=== PATIENT | female | born 1960 | race Caucasian/White ===

== ENCOUNTER 2019-01-07 08:23 | Outpatient (CLI) | payer OTHER, SELFPAY ==
[2019-01-07 10:14] LABS: Calculated LDL 123 mg/dL; Cholesterol 206 mg/dL (50-200); Glucose 87 mg/dL (70-100); HDL Cholesterol 71 mg/dL (40-60); Triglyceride 60 mg/dL (30-150)
== END 2019-01-07 08:43 ==
PROVIDERS: PCP Nurse Practitioner Family; Visit Provider Nurse Practitioner Family
DX: Z13.1 Encounter for screening for diabetes mellitus (principal); Z00.00 Encounter for general adult medical examination without abnormal findings; Z13.220 Encounter for screening for lipoid disorders
CPT/HCPCS: 36415; 80061; 82947; 83721

== ENCOUNTER 2019-09-09 13:52 | Outpatient (CLI) | payer OTHER, SELFPAY ==
[2019-09-12 16:32] LABS: COVID-19 RT-PCR Result Not Detected (NotDetected)
== END 2019-09-09 14:12 ==
PROVIDERS: PCP Nurse Practitioner Family; Visit Provider Family Medicine
DX: Z20.828 Contact with and (suspected) exposure to other viral communicable diseases (principal)
CPT/HCPCS: U0003

== ENCOUNTER 2020-01-13 11:56 | Outpatient (CLI) | payer OTHER, SELFPAY ==
--- NOTE | 2020-01-13 11:15 | DI.RAD_ITS ---
EXAM: XR HIP LT COMPLETE AP PELVIS CLINICAL HISTORY: eval L hip pain, ?KULDEEP. TECHNIQUE: 2D digital imaging was performed. COMPARISON: No exams were available for comparison FINDINGS: BONES: No acute fracture is present. No bony destructive lesion is seen. The bones are normally computer forensics examiner alized and intact. Small subchondral cysts are seen in the left femoral head. JOINTS: No dislocation present. The joint spaces appear fairly well maintained. No significant joint space narrowing is seen. The femoral heads have a normal configuration. There is a small spur at t he medial aspect of the left femoral head. SOFT TISSUE: Normal. IMPRESSION: Mild degenerative changes of the left hip. DATA REPOSITORY: RADIATION DOSE DELIVERED:
== END 2020-01-13 12:16 ==
PROVIDERS: PCP Nurse Practitioner Family; Referring Provider Nurse Practitioner Family; Visit Provider Student in an Organized Health Care Education/Training Program
DX: M25.552 Pain in left hip (principal); M16.12 Unilateral primary osteoarthritis, left hip
CPT/HCPCS: 73502

== ENCOUNTER 2020-12-27 15:16 | Emergency (ER) | payer OTHER, SELFPAY ==
[2020-12-27 15:21] VITALS: BP 139/80; PULSE 62; RESP 18; TEMP 36.3; O2SAT 100
--- NOTE | 2020-12-27 15:37 | ED.GENADUL_ITS ---
Discharge Plan Disposition Patient Disposition: HOME Condition: Stable Discharge Details Clinical Impression: Dog bite of right buttock, Dog bite of right upper arm Primary Care Provider: Tena Medina ED Provider: Valdemar Moran Home Meds and New Rx's Prescriptions: New metronidazole [Flagyl] 500 mg tablet 500 mg PO TID Qty: 29 RF: 0 cefuroxime axetil 500 mg tablet 500 mg PO BID Qty: 19 RF: 0 Continued bupropion HCl 150 mg tablet extended release 24 hr 150 mg PO DAILY RF: 0 Discharge Instructions Instructions: Animal Bite (ED) Additional Instructions: Please monitor wounds for signs of infection. Take antibiotic as prescribed. Please contact your primary care physician to arrange follow-up. Return to the ER for any worsening or new concerning symptoms. Medical Decision Making 60-year-old female here with dog bite to right upper arm and right buttock. We are able to determine to her health officer that dog rabies vaccination is up-to-date. Patient's tetanus is up-to-date. Wounds were irrigated and cleansed by nursing. Patient has had hives with penicillin in the past and is unsure of current allergy status. Patient provided cefuroxime 500 mg and Flagyl 500 mg. She tolerated these medications well. Plan to continue with prescription for the next 7 to 10 days. HPI General Mode of arrival: ambulatory . Date/Time Provider Initiated Documentation: 12/27/20 15:29 . Limitations to Documentation: no limitations . Information obtained by: patient . HPI Narrative: 60-year-old female presents with dog bite. 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 This occurred just prior to arrival. Bites are sore. No modifiers. Her tetanus is up-to-date. Related Data Home Medications Medication Instructions Recorded Confirmed bupropion HCl 150 mg PO DAILY 12/27/20 12/27/20 cefuroxime axetil 500 mg PO BID #19 tab 12/27/20 metronidazole [Flagyl] 500 mg PO TID #29 tab 12/27/20 Previous Rx's Medication Instructions Recorded cefuroxime axetil 500 mg PO BID #19 tab 12/27/20 metronidazole [Flagyl] 500 mg PO TID #29 tab 12/27/20 Allergies Allergy/AdvReac Type Severity Reaction Status Date / Time Penicillins Allergy Mild Hives Unverified 12/27/20 15:28 pseudoephedrine AdvReac Intermediate Cardiac Unverified 12/27/20 15:28 Dysrythmia General Stated Complaint: AnimalBite OCHOA: 3 Review of Systems Integumentary/Breasts Skin/Breast: Reports as per HPI Comments: Dog bite PFSH Family History Sister DCIS (ductal carcinoma in situ) Social History Smoking/Tobacco Use Status: Never Smoking risk assessment performed?: Yes Alcohol Intake: current Alcohol Intake frequency: 0-2 drinks per day Alcohol type: beer and wine Drug use: Never Substance use type: does not use Do you feel safe at home: Yes Do you feel safe in your relationship?: Yes Exam Const General: cooperative and no acute distress Skin Other: Dog bite with superficial punctures to right upper arm and right buttock Extrem General: no edema Course Vital Signs Vital signs: Vital Signs Temperature 36.3 C L 12/27/20 15:21 Pulse 62 12/27/20 15:21 Respiratory Rate 18 12/27/20 15:21 Blood Pressure 139/80 12/27/20 15:21 Pulse Oximetry 100 12/27/20 15:21 Temperature 36.3 C L 12/27/20 15:21 Temperature Source Temporal Artery Scan 12/27/20 15:21 Pulse 62 12/27/20 15:21 Respiratory Rate 18 12/27/20 15:21 Respiratory Effort Non-Labored 12/27/20 15:29 Blood Pressure 139/80 12/27/20 15:21 Blood Pressure Position Sitting 12/27/20 15:21 Pulse Oximetry 100 12/27/20 15:21 Oxygen Delivery Method Room Air 12/27/20 15:21 Oxygen Flow Rate 0 12/27/20 15:21 Pain Level 2 12/27/20 15:21
[2020-12-27] MEDS: metroNIDAZOLE 500 MG TAB PO (15:46)
[2020-12-27] MEDS: Cefuroxime 500 MG TAB PO (15:46)
== END 2020-12-27 16:48 | disposition home or self-care (01) ==
PROVIDERS: Emergency Provider Student in an Organized Health Care Education/Training Program; PCP Nurse Practitioner Family
DX: S41.151A Open bite of right upper arm, initial encounter (principal); S31.815A Open bite of right buttock, initial encounter; W54.0XXA Bitten by dog, initial encounter; Y99.0 Civilian activity done for income or pay
CPT/HCPCS: 99283

== ENCOUNTER 2021-02-14 16:02 | Outpatient (REF) | payer OTHER, SELFPAY ==
--- NOTE | 2021-02-14 15:00 | PAPFT_PTH ---
PATIENT: Leesa Gao LOC: [facility]#:[id number] AGE/SX: 60/F ROOM: RE02/14/[address]: Yennifer Pedraza V : 1960 BED: DIS: 02/14/2021 SPEC #: [id number] RECD: 02/15/21 12:55 STATUS: ZAHIRA REImer #: [id number] VELASQUEZ: 02/14/21 15:[address]: Yennifer Pedraza V DEPT: [facility] Cytology RECD BY: Lorena West ENTERED: 02/15/21 12:55 SP TYPE: PAPFT OTHR DR: Tena Medina Tissues: 1 - CX/ENDOCX FOR PAP SMEARS Procedures: PAP THIN PREP/UVM Screening HPV DNA PROBE Comments: [id number]
== END 2021-02-14 16:03 | disposition home or self-care (01) ==
LOC: NCHCN 16:02
PROVIDERS: PCP Nurse Practitioner Family; Visit Provider Family Medicine
DX: Z01.419 Encounter for gynecological examination (general) (routine) without abnormal findings (principal); Z12.4 Encounter for screening for malignant neoplasm of cervix; Z11.51 Encounter for screening for human papillomavirus (HPV)
CPT/HCPCS: 88142; 87624

== ENCOUNTER 2022-11-03 18:50 | Outpatient (REF) | payer BC, SELFPAY ==
[2022-11-03 17:17] LABS: Absolute Basophil Count 0.02 10^3/uL (0.0-0.2); Absolute Eosinophil Count 0.15 10^3/uL (0.0-0.7); Absolute Monocyte Count 0.39 10^3/uL (0.1-0.8); Absolute Neutrophil Count 3.03 10^3/uL (1.2-6.7); Basophils % 0.5; Eosinophils % 3.6; HCT 40.5 % (36.0-46.0); HGB 13.5 g/dL (11.2-15.7); Lymphocytes % 14.3; MCH 31.5 pg (27.0-33.0); MCHC 33.3 % (32.0-36.0); MCV 94 fL (80-95); MPV 10.8 fL (8.0-11.0); Monocytes % 9.3; Neutrophils % 72.3; Platelet Count 261 10^3/uL (130-400); RBC 4.29 10^6/uL (3.93-5.22); RDW 12.5 % (11.7-14.6); RDW-SD 43.4 fL; WBC 4.19 10^3/uL (4.4-10.8)
[2022-11-03 17:57] LABS: ALT 36 U/L (14-59); AST 29 U/L (15-37); Albumin 3.7 g/dL (3.4-5.0); Alkaline Phosphatase 66 U/L (46-116); Anion Gap 3.7 mmol/L (3-11); BUN 21 mg/dL (7-18); Bilirubin, Total 1.2 mg/dL (0.2-1.0); CO2 26.3 mmol/L (21.0-32.0); CREATININE 0.8 mg/dL (0.55-1.02); Calcium 8.9 mg/dL (8.5-10.1); Calculated LDL 126 mg/dL (<100); Chloride 109 mmol/L (98-107); Cholesterol 205 mg/dL (<200); Estimated GFR 83.78 (mL/min/1.73m2); Glucose 79 mg/dL (74-106); HDL Cholesterol 63 mg/dL (40-60); Potassium 3.9 mmol/L (3.5-5.1); Sodium 139 mmol/L (136-145); TSH (W/Ref FT4) 2.19 uIU/mL (0.36-3.74); Total Protein 6.7 g/dL (6.4-8.2); Triglyceride 82 mg/dL (<150)
== END 2022-11-03 18:51 | disposition home or self-care (01) ==
LOC: NCHCN 18:50
PROVIDERS: PCP Family Medicine; Visit Provider Family Medicine
DX: Z00.00 Encounter for general adult medical examination without abnormal findings (principal); Z13.220 Encounter for screening for lipoid disorders; Z13.29 Encounter for screening for other suspected endocrine disorder; Z13.228 Encounter for screening for other metabolic disorders
CPT/HCPCS: 80053; 80061; 84443; 85025

== ENCOUNTER 2022-11-14 12:30 | Outpatient (REF) | payer BC, SELFPAY ==
--- NOTE | 2022-11-14 13:15 | LYM_PTH ---
PATIENT: Leesa Gao LOC: [facility] U#:[id number] AGE/SX: 62/F ROOM: RE11/14/[address]: Elie Ronquillo MD : 1960 BED: DIS: 11/14/2022 SPEC #: [id number] RECD: 11/18/22 12:04 STATUS: ZAHIRA RE #: [id number] VELASQUEZ: 11/14/22 13:[address]: Elie Ronquillo DEPT: Surgical Specimen RECD BY: Lorena West ENTERED: 11/18/22 12:06 SP TYPE: LYM OTHR DR: Yennifer Pedraza V Tissues: 1 - LYMPH NODE BIOPSY Procedures: GROSS AND MICRO LEVEL 4 SPECIAL STAIN 1 Comments: [id number]
== END 2022-11-14 12:31 | disposition home or self-care (01) ==
LOC: LBN 12:30
PROVIDERS: PCP Family Medicine; Visit Provider Surgery
DX: L04.2 Acute lymphadenitis of upper limb (principal)
CPT/HCPCS: 88305; 88312

== ENCOUNTER 2022-12-08 11:50 | Outpatient (CLI) | payer BC, SELFPAY ==
--- NOTE | 2022-12-08 12:27 | DI.RAD_ITS ---
Exam(s) XR CHEST 2V PA LATERAL EXAM: XR CHEST 2V PA LATERAL CLINICAL HISTORY: AXILLARY MASS R22.9 NIGHT SWEATS R61 WEIGHT LOSS R63.4 BREAST LUMP N63.0 TECHNIQUE: 2D digital imaging was performed. COMPARISON: No exams were available for comparison FINDINGS: HEART: Normal size. Aorta: Not dilated. PULMONARY VASCULATURE: Normal. LUNGS: Clear. PLEURAL SPACE: No pleural effusion or pneumothorax. BONE:Unremarkable for age. IMPRESSION: No acute abnormality. DATA REPOSITORY: RADIATION DOSE DELIVERED:
== END 2022-12-08 12:10 ==
LOC: DI 11:50
PROVIDERS: PCP Family Medicine; Visit Provider Family Medicine
DX: R22.9 Localized swelling, mass and lump, unspecified (principal); R63.4 Abnormal weight loss; R61 Generalized hyperhidrosis
CPT/HCPCS: 71046

== ENCOUNTER 2023-05-11 06:14 | Day surgery (SDC) | payer BC, SELFPAY ==
--- NOTE | 2023-05-10 15:10 | PDOC.DSDIS_ITS ---
Date of service: 05/11/23 Time of Service: 08:03 Discharge Plan Disposition Patient Disposition: Home Condition: Good Discharge Details Reason For Visit: Screening colonoscopy Attending Provider: Elie Ronquillo Primary Care Provider: Yennifer Pedraza V Home Meds and New Rx's Prescriptions: No Action No Known Home Meds Discharge Instructions Instructions: Colorectal Polyps (GEN) Additional Instructions: Leesa, we were able to complete your colonoscopy today without any difficulty. Your prep was outstanding. I removed 3 polyps. The first was around 55 cm from your anus. I am not entirely convinced this is a true polyp, but I did remove it regardless just to be safe. The other 2 polyps were in your rectum. Clinica lly, they seem consistent with hyperplastic polyps, which has the lowest association with colon cancers. Like the first 1, I removed these 2 completely, and I will send these all off for pathology. Once I have those results I will be in touch with recommendations regarding future colonoscopies. 1. If tolerated, consume a soft, low fiber diet for 1-2 days. 2[address] Do not drive, drink alcohol, operate machinery, make critical decisions, or do activities that require coordination or balance for 24 hours. 3. Because air was put into your colon during the procedure, expelling air from your rectum (passing gas or farting) is normal. 4. You may not have a bowel movement for 1-3 days because of the colonoscopy prep. This is normal. 5. Go directly to the emergency room if you notice any of the following: Develop chills (warm to touch), or if you have a thermometer and your temperature is above 101 Difficulty breathing or difficultly swallowing Persistent vomiting Severe abdominal pain, other than gas cramps Severe chest pain Black, tarry stools Any bleeding ? exceeding one tablespoon 6. Call your physician if the site where your intravenous was started becomes red, swollen, painful, and warm to touch. 7. Your physician has reviewed your pre-procedure medications. Please continue to take those medications as previously ordered. You will be given specific information/education regarding any changes to your medications before leaving. Activity:: Activity as Tolerated Diet:: As Tolerated Discharge Orders Discharge Orders: Discharge Order (Routine); Ordered 05/10/23 Ordered By: Elie Ronquillo DS: Diagnosis Discharge Diagnosis (1) Screening for colon cancer: Status: Acute
--- NOTE | 2023-05-10 15:11 | W.COLOREPORT ---
Date of service: 05/11/23 Time of Service: 08:05 Colonoscopy Report Date of procedure: 05/11/23 Pre-op diagnosis general: Screening colonoscopy Post-op diagnosis procedure note: other (Colorectal polyps) Procedure: Colonoscopy with polypectomy Surgeon: Elie Ronquillo Anesthesia Type: General:No Airway Estimated blood loss (mL): 10 Pathology: other (0.25 cm polyp at 55 cm, 0.25 cm rectal polyps x2) Complications: None Disposition: same day Indications: Leesa is 62 years old and she needs her next screening colonoscopy Prep: Miralax/Dulcolax Procedure Start Time: 07:35 Procedure End Time: 07:52 Retraction Time: 12 Findings: 0.25 cm polyp at 55 cm, 0.25 cm polyps x2 in the rectum Procedure Description: After the induction of monitored anesthetic care, and with the patient in left lateral decubitus position, I began by performing an external anorectal exam.? Perineum and skin were normal, as was the anal verge.? There is a perianal skin tag consistent with an old fibrosed hemorrhoid.? Next, I performed a digital rectal exam.? I did appreciate any abnormal findings.? Next, I advanced a colonoscope into the rectal vault.? I performed retroflexion.? This was normal.? Using insufflation, I then advanced the colonoscope beyond the rectal folds and into the sigmoid colon before advancing towards the cecum.? The quality of the prep was outstanding.? The scope was noted to be in the cecum by identification of the ileocecal valve and appendiceal orifice.? I then began withdrawing the colonoscope using repeated irrigation as necessary for full evaluation of the colonic mucosa. Around 55 cm from the anal verge I identified a 0.25 cm polyp. ?It appeared sessile in character. ?I was able to remove this with a cold forcep polypectomy. ?I examined the site, and there was minimal bleeding. ?Once this was completed, I continued to withdraw the scope and examine the remainder of the colonic mucosa.?Once the scope was withdrawn to the level of the rectum, great care was taken to examine portions of the rectal folds.? Within the lower rectum are two 0.25 cm sessile polyps. Clinically they appeared consistent with hyperplastic polyps. I did remove these with cold forceps and no significant bleeding. Finally, the scope was withdrawn and the patient was brought to the same-day surgery recovery unit as the anesthetic wore off. ?The findings and instructions were shared with the patient prior to discharge.
--- NOTE | 2023-05-10 18:23 | W.ANESPRE ---
General Info Date of Service Date Performed: 05/11/23 Height: 5 ft 9 in Weight: 59.477 kg Body Mass Index (BMI): 19.3 Surgical Procedure: Operation Date: 05/11/23 07:35 Proposed Procedure Side Surgeon manjit Ronquillo MD Meds Allergies and Home Medications Allergies Allergy/AdvReac Type Severity Reaction Status Date / Time Penicillins Allergy Mild Hives Unverified 05/11/23 06:49 pseudoephedrine AdvReac Intermediate Cardiac Unverified 05/11/23 06:49 Dysrythmia Home Medication Medication Instructions Recorded Unknown [No Known Home Meds] 11/14/22 Current Visit Medications: Current Medications Generic Name Dose Route Start Last Admin Trade Name Freq PRN Reason Stop Dose Admin Hyoscyamine Sulfate 0.125 mg 05/10/23 15:13 Hyoscyamine 0.125 Mg Sl/Oral/Chew SL 06/09/23 15:12 DIRECTED PRN Ringer's Solution 1,000 mls @ 80 mls/hr 05/11/23 06:00 IV 05/11/23 23:59 INFUSION [facility] IV Miscellaneous Supplies 1 each 05/11/23 06:00 Iv Access IV 05/11/23 23:59 DIRECTED AYLIN Ondansetron HCl 4 mg 05/10/23 15:13 Ondansetron 4 Mg/2 Ml Vial IVP 06/09/23 15:12 Q4H PRN PRN Nausea / Vomiting Sodium Chloride 0 ml 05/11/23 06:00 Normal Saline Flush 10 Ml Syr IV 05/11/23 23:59 PRN PRN Sodium Chloride 0 ml 05/11/23 06:00 Normal Saline 10 Ml Vial IJ 05/11/23 23:59 DIRECTED PRN Sterile Water 0 ml 05/11/23 06:00 Water,Injection,Sterile 10 Ml Vial IJ 05/11/23 23:59 DIRECTED PRN PFSH Active Problems Active Problems: Problem Status Onset Code Axillary lymphadenopathy R59.0 H/O lymph node excision Z98.890 Screening for colon cancer Z12.11 Dog bite of right buttock S31.815A, W54.0XXA Dog bite of right upper arm S41.151A, W54.0XXA Headache R51.9 Sore throat J02.9 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 Medical History Medical History DUB (dysfunctional uterine bleeding) (03/26/16) Cervical high risk human papillomavirus (HPV) DNA test positive (04/24/14) Atypical squamous cell of undetermined significance of cervix (04/24/14) Surgical History Surgical History (Updated 05/11/23 @ 06:58 by Caitlyn Duckworth RN) History of tonsillectomy S/P colonoscopy 2013-normal Tobacco Smoking/Tobacco Use Status: Never Alcohol Alcohol Intake: current Alcohol intake frequency: a few times a week Alcohol type: beer and wine Substance Use Substance use: Never Substance use type: does not use Vital Signs and Lab Results Vital Signs Most Recent Vital Signs in EMR: Temp Pulse Resp BP Pulse Ox 36.4 C L 62 16 98/62 L 99 05/11/23 06:41 05/11/23 06:41 05/11/23 06:41 05/11/23 06:41 05/11/23 06:41 Lab Results Blood Type / Crossmatch: No Data to Display Complete Blood Count: No Data to Display Complete Metabolic Panel: No Data to Display Liver Function Panel: No Data to Display Coagulation Panel: No Data to Display Cardiac Panel: No Data to Display Arterial Blood Gas: No Data to Display Venous Blood Gas: No Data to Display Pancreas Panel: No Data to Display Thyroid Panel: No Data to Display Infectious Disease: No Data to Display Blood Cultures: No Data to Display Toxicology Panel: No Data to Display Anesthesia Assessment and Plan Anesthesia History Personal History: No History of Anesthesia Complications Family History: No Family History of Anesthesia Complications Exercise Tolerance Exercise Tolerance: Metabolic Equivalents>4 Cardiac & Pulmonary Exam Cardiac Exam: Normal S1/S2 Heart Sounds Pulmonary Exam: Clear Bilateral Breath Sounds Implantable Cardiac Device Does patient have a Pacemaker or an ICD?: No Airway Exam Known Difficult Airway: No Mallampati Class: 2 Mouth Opening: Normal (> 3cm) Thyromental Distance: Greater than 3 cm Neck Range of Motion: Full ROM Neck Circumference: Normal Teeth Condition: Normal Dentition ASA Classification ASA Score: ASA 1 Emergency Case?: No NPO Status NPO Status: NPO Clears >2 hours, Solids >8 hours Anesthesia Plan Resuscitation Status: Full Code Anesthesia Technique: General Anesthesia Airway Planned: Natural Airway Monitors Used: Standard Monitors Preoperative Comments:: 62 yo female for colo. Sig PMHx: never smoker, occ EtOH.
[2023-05-11] MEDS: Lactated Ringers 1,000 ML 80 ML IV (06:40)
[2023-05-11 06:41] VITALS: BP 98/62; PULSE 62; RESP 16; TEMP 36.4; O2SAT 99
[2023-05-11 07:01] VITALS: BMI 19.3
--- NOTE | 2023-05-11 07:46 | BOWEL_PTH ---
PATIENT: Leesa Gao LOC: [facility] U#:[id number] AGE/SX: 62/F ROOM: RE05/11/[address]: Elie Ronquillo MD : 1960 BED: DIS: 05/11/2023 SPEC #: [id number] RECD: 05/11/23 12:18 STATUS: ZAHIRA RE #: [id number] VELASQUEZ: 05/11/23 07:[address]: Elie Ronquillo DEPT: Surgical Specimen RECD BY: Lorena West ENTERED: 05/11/23 12:18 SP TYPE: Bowel OTHR DR: Yennifer Pedraza V Tissues: 1 - BIOPSY BOWEL 2 - BIOPSY BOWEL Procedures: GROSS AND MICRO LEVEL 4 Comments: [id number]
[2023-05-11 08:04] VITALS: BP 93/56; PULSE 66; RESP 18; TEMP 36.4; O2SAT 98
[2023-05-11 08:20] VITALS: BP 96/63; PULSE 55; RESP 16; TEMP 36.6; O2SAT 98
--- NOTE | 2023-05-11 08:26 | W.ANESPOSTOP ---
Postoperative Evaluation Date, Time and Location Date Performed: 05/11/23 Time Performed: 08:10 Patient Location: Day Surgery Unit Vital Signs Most Recent Imported Vital Signs: Most Recent Vital Signs Temp Pulse Resp BP Pulse Ox 36.6 C 55 L 16 96/63 L 98 05/11/23 08:20 05/11/23 08:20 05/11/23 08:20 05/11/23 08:20 05/11/23 08:20 Pain Score Most Recent Pain Score: Most Recent Pain Score Pain Level 0 05/11/23 08:20 Assessment Mental Status: Awake (Alert & Oriented to Patient Baseline) Airway and Respiratory Function: Patent airway with normal (patient baseline) respiratory exam Cardiovascular Function: Hemodynamically Stable Hydration Status: Adequately Hydrated Nausea & Vomiting: No Nausea or Vomiting Pain: Pt. Denies Any Pain Peripheral Nerve Block: Patient did not receive a nerve block
== END 2023-05-11 08:30 | disposition home or self-care (01) ==
LOC: SUR 06:14
PROVIDERS: PCP Family Medicine; Visit Provider Surgery
PROC: 0DJD8ZZ Inspection of Lower Intestinal Tract, Via Natural or Artificial Opening Endoscopic (ICD-10-PCS; CPT 45378; principal; 2023-05-11 07:30)
DX: Z12.11 Encounter for screening for malignant neoplasm of colon (principal); K63.5 Polyp of colon
CPT/HCPCS: 45380; 88305

== ENCOUNTER 2023-09-25 14:06 | Outpatient (CLI) | payer BC, SELFPAY ==
[2023-09-25] MEDS: Levalbuterol HFA 15 GM INH 4 PUFF IH (15:30)
[2023-09-25] MEDS: Inhaler, Assist Device 1 EACH MC (15:30)
--- NOTE | 2023-09-29 11:03 | W.PFT ---
Date of service: 09/25/23 Time of Service: 14:36 Pulmonary Function Test Result Indications: Sarcoidosis Interpretation Spirometry: There is no airflow limitation. No bronchodilator response. Lung Volumes: Normal lung volumes Diffusion Capacity: Normal diffusion Airway Pressure: Normal airways resistance Impression Normal pulmonary function testing Clinical Correlation therefore is recommended.
== END 2023-09-25 14:07 | disposition home or self-care (01) ==
LOC: RT 14:08
PROVIDERS: PCP Family Medicine; Visit Provider Student in an Organized Health Care Education/Training Program
DX: D86.9 Sarcoidosis, unspecified (principal)
CPT/HCPCS: 94060; 94726; 94729

== ENCOUNTER 2023-09-25 17:12 | Outpatient (REF) | payer BC, SELFPAY ==
[2023-09-25 19:44] LABS: ALT 54 U/L (14-59); AST 75 U/L (15-37); Albumin 3.7 g/dL (3.4-5.0); Alkaline Phosphatase 69 U/L (46-116); Anion Gap 10.7 mmol/L (3-11); BUN 27 mg/dL (7-18); Bilirubin, Total 0.6 mg/dL (0.2-1.0); CO2 26.3 mmol/L (21.0-32.0); CREATININE 1.2 mg/dL (0.55-1.02); Calcium 8.9 mg/dL (8.5-10.1); Chloride 108 mmol/L (98-107); Estimated GFR 51.18 (mL/min/1.73m2); Glucose 102 mg/dL (74-106); Potassium 4.2 mmol/L (3.5-5.1); Sodium 145 mmol/L (136-145); Total Protein 6.2 g/dL (6.4-8.2)
[2023-09-25 20:54] LABS: Vitamin D 25 Total 42.7 ng/mL (30-100)
== END 2023-09-25 17:13 | disposition home or self-care (01) ==
LOC: LBN 17:12
PROVIDERS: PCP Family Medicine; Visit Provider Student in an Organized Health Care Education/Training Program
DX: D86.9 Sarcoidosis, unspecified (principal)
CPT/HCPCS: 80053; 82306

== ENCOUNTER 2023-09-28 11:22 | Outpatient (CLI) | payer BC, SELFPAY ==
--- NOTE | 2023-09-28 11:15 | RT.EKG_ITS ---
APPROVED REPORT Exam: Resting ECG Reason for Exam: screening for cardiac sarcoid Patient Location: O HR:63 bpm ECG Measurements Heart Rate 63 AXIS KS 127 P 77 QRSd 87 QRS 66 QT 406 T 51 QTc 416 Conclusion Sinus rhythm...normal P axis, V-rate 50- 99 Normal Electrocardiogram
== END 2023-09-28 11:23 | disposition home or self-care (01) ==
LOC: CARDOPNVT 11:22
PROVIDERS: PCP Family Medicine; Visit Provider Student in an Organized Health Care Education/Training Program
DX: D86.9 Sarcoidosis, unspecified (principal)
CPT/HCPCS: 93005; 93010

== ENCOUNTER 2023-09-28 11:37 | Outpatient (REF) | payer BC, SELFPAY ==
[2023-09-30 09:29] LABS: Calcium Urine 21.5 mg/dL (See Note); Calcium Urine 24 hr 452 mg/24hr (100-300); Timed Urine Volume 2100 mL
== END 2023-09-28 11:38 | disposition home or self-care (01) ==
LOC: LBN 11:37
PROVIDERS: PCP Family Medicine; Visit Provider Student in an Organized Health Care Education/Training Program
DX: D86.9 Sarcoidosis, unspecified (principal)
CPT/HCPCS: 82340

== ENCOUNTER 2023-10-07 10:13 | Outpatient (CLI) | payer BC, SELFPAY ==
[2023-10-07 18:24] LABS: ALT 36 U/L (14-59); AST 20 U/L (15-37); Albumin 3.8 g/dL (3.4-5.0); Alkaline Phosphatase 57 U/L (46-116); Anion Gap 11.2 mmol/L (3-11); BUN 27 mg/dL (7-18); Bilirubin, Total 0.8 mg/dL (0.2-1.0); CO2 26.8 mmol/L (21.0-32.0); Chloride 104 mmol/L (98-107); Glucose 94 mg/dL (74-106); Potassium 4.2 mmol/L (3.5-5.1); Sodium 142 mmol/L (136-145)
[2023-10-07 18:37] LABS: Total Protein 6.5 g/dL (6.4-8.2)
== END 2023-10-07 10:14 | disposition home or self-care (01) ==
LOC: LBO 10:14
PROVIDERS: PCP Family Medicine; Visit Provider Student in an Organized Health Care Education/Training Program
DX: N17.9 Acute kidney failure, unspecified (principal); D86.9 Sarcoidosis, unspecified
CPT/HCPCS: 36415; 80053

== ENCOUNTER → 2024-01-07 01:49 | Outpatient (CLI) | payer BC, SELFPAY ==
--- NOTE | 2024-01-07 06:30 | DI.DEXA_ITS ---
Exam(s) XR DEXA BONE DENSITY W/WO LANETTE EXAM: XR DEXA BONE DENSITY W/WO LANETTE CLINICAL HISTORY: on chronic prednisone, high risk for osteoporosis,z79.52 TECHNIQUE: Routine DEXA evaluation of the lumbar spine, hip, or forearm. COMPARISON: No exams were available for comparison FINDINGS: Performed on a Hologic unit. Lateral image: No compression fracture evident. Lumbar Spine total T-score: -2.1 Hip total T-score:-2.0 Independent reading at the level of the femoral neck yields T-score of -1.3 IMPRESSION: Bone mineral density measures in the osteopenia range. Fracture risk is moderate. Note: Any spine fracture indicates 5x risk for subsequent spine fracture and 2x risk for subsequent h ip fracture. World Health Organization criteria for BMD interpretation classify patients: Normal...... T- Score at or above -1.0 Osteopenic... T- Score between -1.0 and -2.5 Osteoporosis... T-Score at or below -2.5
== END ==
PROVIDERS: PCP Family Medicine; Visit Provider Student in an Organized Health Care Education/Training Program
DX: M85.88 Other specified disorders of bone density and structure, other site (principal); Z79.52 Long term (current) use of systemic steroids
CPT/HCPCS: 77080

== ENCOUNTER 2024-01-12 15:47 | Outpatient (REF) | payer BC, SELFPAY ==
[2024-01-12 14:58] LABS: Abs Immature Grans 0.03 10^3/uL (0.0-0.06); Absolute Basophil Count 0.02 10^3/uL (0.0-0.2); Absolute Eosinophil Count 0.05 10^3/uL (0.0-0.7); Absolute Lymphocyte Count 0.41 10^3/uL (1.2-3.4); Absolute Monocyte Count 0.33 10^3/uL (0.1-0.8); Absolute Neutrophil Count 7.44 10^3/uL (1.2-6.7); Basophils % 0.2 %; Eosinophils % 0.6 %; HCT 41.1 % (36.0-46.0); HGB 13.7 g/dL (11.2-15.7); Immature Grans % 0.4 %; MCH 32.4 pg (27.0-33.0); MCHC 33.3 % (32.0-36.0); MCV 97 fL (80-95); MPV 10.9 fL (8.0-11.0); Neutrophils % 89.8 %; Platelet Count 236 10^3/uL (130-400); RBC 4.23 10^6/uL (3.93-5.22); RDW 12.4 % (11.7-14.6); WBC 8.28 10^3/uL (4.4-10.8)
[2024-01-12 15:19] LABS: ALT 36 U/L (14-59); AST 28 U/L (15-37); Albumin 3.7 g/dL (3.4-5.0); Alkaline Phosphatase 50 U/L (46-116); BUN 26 mg/dL (7-18); Bilirubin, Total 0.91 mg/dL (0.2-1.0); CREATININE 0.9 mg/dL (0.55-1.02); Calcium 8.6 mg/dL (8.5-10.1); Chloride 108 mmol/L (98-107); Estimated GFR 72.28 (mL/min/1.73m2); Glucose 90 mg/dL (74-106); Potassium 4.3 mmol/L (3.5-5.1); Sodium 145 mmol/L (136-145); Total Protein 6.1 g/dL (6.4-8.2)
[2024-01-13 21:16] LABS: Angiotensin Converting Enzyme 26 U/L (16 - 85)
== END 2024-01-12 15:48 | disposition home or self-care (01) ==
LOC: LBN 15:47
PROVIDERS: PCP Family Medicine; Visit Provider Internal Medicine Critical Care Medicine
DX: D86.9 Sarcoidosis, unspecified (principal)
CPT/HCPCS: 80053; 82164; 85025

== ENCOUNTER 2024-03-10 15:26 | Outpatient (CLI) | payer BC, SELFPAY ==
[2024-03-10 14:43] LABS: Abs Immature Grans 0.01 10^3/uL (0.0-0.06); Absolute Basophil Count 0.02 10^3/uL (0.0-0.2); Absolute Eosinophil Count 0.29 10^3/uL (0.0-0.7); Absolute Monocyte Count 0.35 10^3/uL (0.1-0.8); Absolute Neutrophil Count 3.15 10^3/uL (1.2-6.7); Basophils % 0.5 %; Eosinophils % 6.7 %; HCT 38.4 % (36.0-46.0); HGB 12.5 g/dL (11.2-15.7); Immature Grans % 0.2 %; Lymphocytes % 11.6 %; MCH 31.6 pg (27.0-33.0); MCHC 32.6 % (32.0-36.0); MCV 97 fL (80-95); MPV 9.5 fL (8.0-11.0); Monocytes % 8.1 %; Neutrophils % 72.9 %; Platelet Count 189 10^3/uL (130-400); RBC 3.95 10^6/uL (3.93-5.22); RDW 12.6 % (11.7-14.6); WBC 4.32 10^3/uL (4.4-10.8)
[2024-03-10 15:17] LABS: ALT 30 U/L (14-59); AST 26 U/L (15-37); Albumin 3.4 g/dL (3.4-5.0); Alkaline Phosphatase 66 U/L (46-116); Anion Gap 5.4 mmol/L (3-11); BUN 17 mg/dL (7-18); Bilirubin, Total 0.85 mg/dL (0.2-1.0); CO2 29.6 mmol/L (21.0-32.0); CREATININE 0.9 mg/dL (0.55-1.02); Calcium 8.9 mg/dL (8.5-10.1); Chloride 108 mmol/L (98-107); Estimated GFR 72.28 (mL/min/1.73m2); Glucose 151 mg/dL (74-106); Potassium 3.7 mmol/L (3.5-5.1); Sodium 143 mmol/L (136-145)
== END 2024-03-10 15:27 | disposition home or self-care (01) ==
LOC: LBO 15:27
PROVIDERS: PCP Family Medicine; Visit Provider Internal Medicine Critical Care Medicine
DX: D86.9 Sarcoidosis, unspecified (principal); K76.9 Liver disease, unspecified
CPT/HCPCS: 36415; 80053; 85025

== ENCOUNTER 2024-03-25 03:27 | Outpatient (CLI) | payer BC, SELFPAY ==
--- NOTE | 2024-03-31 16:44 | W.PFT ---
Date of service: 03/25/24 Time of Service: 15:00 Pulmonary Function Test Result Indications: Sarcoidosis Interpretation Spirometry: There is no airflow limitation Lung Volumes: Normal lung volumes Diffusion Capacity: Normal diffusion Airway Pressure: Normal airways resistance Impression Normal pulmonary function testing Clinical Correlation therefore is recommended.
== END 2024-03-25 03:28 | disposition home or self-care (01) ==
LOC: RT 03:27
PROVIDERS: PCP Family Medicine; Visit Provider Internal Medicine
DX: D86.9 Sarcoidosis, unspecified (principal)
CPT/HCPCS: 94726; 94729; 94010

== ENCOUNTER 2024-05-09 15:04 | Outpatient (REF) | payer BC, SELFPAY ==
[2024-05-09 13:44] LABS: CREATININE 0.8 mg/dL (0.55-1.02); Estimated GFR 83.26 (mL/min/1.73m2)
[2024-05-12 14:48] LABS: Angiotensin Converting Enzyme 46 U/L (16 - 85)
== END 2024-05-09 15:05 | disposition home or self-care (01) ==
LOC: LBN 15:04
PROVIDERS: Internal Medicine Pulmonary Disease; PCP Family Medicine; Visit Provider Physician Assistant Surgical
DX: D86.9 Sarcoidosis, unspecified (principal)
CPT/HCPCS: 82164; 82565

== ENCOUNTER 2024-06-20 14:03 | Outpatient (CLI) | payer BC, SELFPAY ==
[2024-06-20 12:35] LABS: Abs Immature Grans 0.02 10^3/uL (0.0-0.06); Absolute Basophil Count 0.02 10^3/uL (0.0-0.2); Absolute Eosinophil Count 0.11 10^3/uL (0.0-0.7); Absolute Monocyte Count 0.46 10^3/uL (0.1-0.8); Absolute Neutrophil Count 5.76 10^3/uL (1.2-6.7); Basophils % 0.3 %; Eosinophils % 1.6 %; HCT 44.8 % (36.0-46.0); HGB 14.7 g/dL (11.2-15.7); Immature Grans % 0.3 %; Lymphocytes % 9.9 %; MCH 30.9 pg (27.0-33.0); MCHC 32.8 % (32.0-36.0); MCV 94 fL (80-95); MPV 9.8 fL (8.0-11.0); Monocytes % 6.5 %; Neutrophils % 81.4 %; Platelet Count 229 10^3/uL (130-400); RBC 4.76 10^6/uL (3.93-5.22); RDW-SD 42.3 fL; WBC 7.07 10^3/uL (4.4-10.8)
[2024-06-20 13:17] LABS: ALT 24 U/L (14-59); AST 22 U/L (15-37); Albumin 3.6 g/dL (3.4-5.0); Alkaline Phosphatase 85 U/L (46-116); Anion Gap 8.8 mmol/L (3-11); BUN 19 mg/dL (7-18); CO2 27.2 mmol/L (21.0-32.0); Calcium 9.1 mg/dL (8.5-10.1); Chloride 105 mmol/L (98-107); Glucose 115 mg/dL (74-106); Potassium 4.3 mmol/L (3.5-5.1); Sodium 141 mmol/L (136-145); Total Protein 6.7 g/dL (6.4-8.2)
[2024-06-21 14:50] LABS: 4/8 Ratio 3.53 (>=0.90); Absolute CD3 285 Cells/uL (840-2669); Absolute CD8 60 Cells/uL (154-1097); CD3 29 % (56-84); CD4 21 % (31-64); CD8 6 % (9-39)
== END 2024-06-20 14:04 | disposition home or self-care (01) ==
LOC: LBO 14:04
PROVIDERS: Physician Assistant Surgical; PCP Family Medicine; Visit Provider Student in an Organized Health Care Education/Training Program
DX: D86.9 Sarcoidosis, unspecified (principal)
CPT/HCPCS: 36415; 80053; 85025; 86359; 86360

== ENCOUNTER 2024-08-09 10:10 | Outpatient (CLI) | payer OTHER, SELFPAY | END 2024-08-09 10:11 | disposition home or self-care (01) | PROVIDERS: PCP Family Medicine; Visit Provider Family Medicine | DX: D86.9 Sarcoidosis, unspecified (principal) | CPT/HCPCS: 93246 ==

== ENCOUNTER 2024-08-29 11:38 | Outpatient (CLI) | payer OTHER, SELFPAY ==
[2024-08-31 10:03] LABS: EBNA IgG Positive (Negative); EBV Interpretation (See Note); VCA IgG Positive (Negative); VCA IgM Negative (Negative)
[2024-08-31 12:37] LABS: TB Interpretation Negative (Negative)
[2024-09-01 16:43] LABS: HTLV-I/II Ab Screen Negative (Negative)
== END 2024-08-29 11:39 | disposition home or self-care (01) ==
PROVIDERS: PCP Family Medicine; Visit Provider Family Medicine
DX: D86.9 Sarcoidosis, unspecified (principal)
CPT/HCPCS: 36415; 86689; 86790; 86480; 86664; 86665

== ENCOUNTER 2024-08-30 06:57 | Outpatient (CLI) | payer OTHER, SELFPAY ==
--- NOTE | 2024-08-30 12:38 | W.CARDEVENT ---
Date of service: 08/30/24 Time of Service: 12:38 Cardiac Event Recorder Referring Provider:: Yennifer Pedraza Indications:: Chest pain Cardiac Event Note: This is a cardiac event monitor. Patient was monitored for 13 days and 19 hours. Predominant rhythm was sinus with an average heart rate of 69. Minimum was 42, maximum 161. There were rare ventricular ectopic beats. There was 1 run of nonsustained ventricular tachycardia which was 8 beats in duration. There were rare atrial premature beats. There were several self-limited atrial runs. There was no atrial fibrillation, no high-grade AV block, no pauses greater than 3 seconds. Reported symptoms correlated to sinus bradycardia rate 58
== END 2024-08-30 06:58 | disposition home or self-care (01) ==
LOC: CARDOPNVT 06:57
PROVIDERS: PCP Family Medicine; Visit Provider Internal Medicine Cardiovascular Disease
DX: I47.20 Ventricular tachycardia, unspecified (principal); R07.89 Other chest pain
CPT/HCPCS: 93248